=== PATIENT | male | born 1995 | race Asian ===

== ENCOUNTER 2022-08-07 09:47 | Emergency (ER) | payer OTHER ==
[~2022-08-07] VITALS: Ht 172.7 cm; Wt 195.0 kg
[2022-08-07 09:48] VITALS: BP 136/73
[2022-08-07] MEDS ORDERED: DOXYCYCLINE HYCLATE 100MG TABLET PO ONE (14:55)
[2022-08-07] MEDS ORDERED: cefTRIAXone 500MG VIAL IM ONE (14:55)
[2022-08-07] MEDS ORDERED: LIDOCAINE 1% SDV 5ML VIAL DILUENT ONE (14:55)
[2022-08-07] MEDS ORDERED: DOXY-444 PO (14:56)
[2022-08-07 16:44] LABS: GC DNA AMPLIFICATION NEGATIVE (NEGATIVE)
== END 2022-08-07 15:25 | disposition home or self-care (01) ==
LOC: M ED 09:47
DX: N45.1 Epididymitis (principal)
CPT/HCPCS: 76870; 81002; 87661; 87810; 87850; 93976; 96372; 99282; J0696